=== PATIENT | female | born 1965 | race Caucasian/White ===

== ENCOUNTER → 2016-10-13 | Outpatient (CLI) | payer BC ==
[~2016-10-13] MED LIST: IBUP600T44 PO; PRCUNK PO
--- NOTE | 2016-10-21 12:09 | CODING QUERY MEDICAL NECESSITY ---
CQSUPPORTING DIAGNOSIS NEEDED A supporting diagnosis is required for the test/procedure performed on this patient in order for us to be reimbursed by the patient's insurance. Please provide a supporting diagnosis for the following test/procedure listed below next to the test name along with your signature. *If there is no additional diagnosis for this patient that would support the following test/procedure please document that below next to the test/procedure. Test(s)/Procedure(s) that require a supporting diagnosis: DOS 10/13/16 VITAMIN D VITAMIN B12 Provider Signature: Date: Thank you Lorenza Dick Health Information Management Once completed, please kindly fax back to [phone] For questions please call [phone]
== END | disposition home or self-care (01) ==
LOC: C.LABSPEC 10:48
PROVIDERS: ATTEND Family Medicine
DX: E03.9 Hypothyroidism, unspecified (principal); R53.83 Other fatigue; F90.0 Attention-deficit hyperactivity disorder, predominantly inattentive type

== ENCOUNTER → 2016-10-20 | Outpatient (CLI) | payer BC ==
--- NOTE | 2016-10-20 16:36 | MAMMOGRAPHY REPORT ---
BILATERAL DIGITAL SCREENING MAMMOGRAM TOMOSYNTHESIS WITH CAD: 10/20/2016 CLINICAL HISTORY: Routine screening. Patient has no complaints. TECHNIQUE: Breast tomosynthesis in addition to standard 2D mammography was performed. Current study was also evaluated with a Computer Aided Detection (CAD) system. COMPARISON: Comparison is made to exams dated: 09/09/2015 mammogram, 08/11/2014 mammogram, 08/08/2013 isela mogram, 08/06/2012 mammogram, 08/05/2011 mammogram, and 08/04/2010 mammogram - [facility] BREAST COMPOSITION: There are scattered areas of fibroglandular density in both breasts. FINDINGS: No suspicious masses, calcifications, or areas of architectural distortion are noted in e ither breast. There has been no significant interval change compared to prior exams. IMPRESSION: ACR BI-RADS CATEGORY 1: NEGATIVE There is no mammographic evidence of malignancy. A 1 year screening mammogram is recommended. The p atient will receive written notification of the results. Approximately 10% of breast cancers are not detected with mammography. A negative mammographic repor t should not delay biopsy if a clinically suggestive mass is present. Danielle Watson M.D. ah/:10/20/2016 16:23:32 Residential Coordinator: Lobo VILLAVICENCIO(R)(M), [facility] letter sent: Normal 1/2 BI-RADS Code: ACR BI-RADS Category 1: Negative
== END | disposition home or self-care (01) ==
LOC: C.MAMM 15:58
PROVIDERS: ATTEND Family Medicine
DX: Z12.31 Encounter for screening mammogram for malignant neoplasm of breast (principal)

== ENCOUNTER 2017-08-15 17:32 | Emergency (ER) | payer BC ==
[~2017-08-15] VITALS: Ht 172.7 cm; Wt 96.7 kg
[2017-08-15 17:36] VITALS: Ht 172.7 cm; Wt 96.7 kg
[2017-08-15] MEDS ORDERED: SODIUM CHLORIDE 0.9% 500ML 500 ML IV STA (18:06)
[2017-08-15] MEDS ORDERED: ASPIRIN 81 MG CHEW PO STA (18:06)
[2017-08-15] MEDS ORDERED: NITROGLYCERIN 0.4 MG SL PER TAB CHARGE SL PRN (18:15)
--- NOTE | 2017-08-15 18:21 | DIAGNOSTIC IMAGING REPORT ---
CHEST ONE VIEW PORTABLE CLINICAL HISTORY: 52 years-old Female presenting with Chest Pain. TECHNIQUE: Portable upright AP view of the chest was obtained. COMPARISON: None. FINDINGS: Cardiomediastinal silhouette normal. Lungs and pleural spaces clear. Degenerative changes of the thoracic spine. Upper abdomen normal. IMPRESSION: 1. No acute cardiopulmonary disease. Electronically signed by: Terence Tsang M.D. 08/15/2017 6:20 PM Dictated Date/Time: 08/15/2017 6:20 PM
[2017-08-15] MEDS ORDERED: LISD60CA PO (18:30)
[2017-08-15 18:32] LABS: BASO % 0.4 %; BASO ABS # 0.04 K/uL (0-0.2); EOS ABS # 0.19 K/uL (0-0.5); HEMATOCRIT 39.5 % (37-47); HEMOGLOBIN 13.7 g/dL (12.0-16.0); IG# 0.03 K/uL (0.00-0.02); LYMPH % 30.6 %; LYMPH ABS # 2.86 K/uL (1.2-3.4); MEAN CELL VOLUME 84.8 fL (80-100); MEAN CORPUSCULAR HEMOGLOBIN 29.4 pg (25-34); MEAN CORPUSCULAR HGB CONC 34.7 g/dl (32-36); MEAN PLATELET VOLUME 9.3 fL (7.4-10.4); MONO ABS # 0.84 K/uL (0.11-0.59); NEUT % 57.7 %; NEUT ABS # 5.38 K/uL (1.4-6.5); PLATELET COUNT 310 K/uL (130-400); RED CELL DISTRIBUTION WIDTH CV 13.3 % (11.5-14.5); RED CELL DISTRIBUTION WIDTH SD 40.9 fL (36.4-46.3); WHITE BLOOD COUNT 9.34 K/uL (4.8-10.8)
[2017-08-15] MEDS ORDERED: AMPH10TA2 PO (18:33)
[2017-08-15] MEDS ORDERED: LEVO100T7 PO (18:34)
[2017-08-15] MEDS ORDERED: CHOL2000 PO (18:35)
[2017-08-15 18:49] VITALS: TEMP 37.1
[2017-08-15 19:09] LABS: BLOOD UREA NITROGEN 13 mg/dl (7-18); CALCIUM 8.9 mg/dl (8.5-10.1); CARBON DIOXIDE 25 mmol/L (21-32); GLUCOSE 127 mg/dl (70-99); POTASSIUM 3.4 mmol/L (3.5-5.1); SODIUM 137 mmol/L (136-145)
[2017-08-15 19:14] LABS: CKMB 1.6 ng/ml (0.5-3.6)
[2017-08-15] MEDS ORDERED: ALBUTEROL 0.083% NEBU SOLN 3 ML VIAL INH STA (19:26)
--- NOTE | 2017-08-15 20:20 | Medical Consult ---
Consultation Date of Consultation: Aug 15, 2017. Attending Physician: History of Present Illness 52 y/o F Hx Hypothyroidism. Pt states she has felt like she cannot take a deep breath for approximately two months. She also describes a shooting pain in her chest which has also been present intermittently for 2 weeks. She denies N/V, diaphoresis, lightheadedness or radiation of the pain. The pt did not exhibit hypoxia or tachycardia. Initial labs are WNL, An EKG shows borderline inversions in 2 inferior leads, however, these are present on an EKG from 2010. Past Medical/Surgical History 1) Hypothyroidism 2) ADHD Family History Patient reports no known family medical history. Father had an IL at age 68 Social History Smoking Status: Never Smoker Allergies Coded Allergies: No Known Allergies (Unverified , 09/06/10) Current Inpatient Medications Current Inpatient Medications Medications (Trade) Dose Ordered Sig/Tian Route Start Time Stop Time Status Last Admin Dose Admin Nitroglycerin (Nitrostat Tab) 0.4 mg Q5M PRN SL 08/15/17 18:15 09/14/17 18:14 08/15/17 18:17 0.4 MG Review of Systems Constitutional: No fever, No chills, No sweats Eyes: No worsening of vision ENT: No hearing loss, No unusual epistaxis, No nasal symptoms Respiratory: + shortness of breath (feels she cannot take a deep breath ), No cough, No sputum, No wheezing Cardiovascular: + chest pain Abdomen: No pain, No nausea, No vomiting Musculoskeletal: No joint pain Genitourinary - Female: No dysuria, No urinary frequency, No urinary urgency Neurologic: No memory loss, No paralysis, No weakness Psychiatric: No depression symptoms Endocrine: No fatigue Hematologic / Lymphatic: No abnormal bleeding/bruising Integumentary: No rash Allergic / Immunologic: No environmental allergies Physical Exam Date Time Temp Pulse Resp B/P (MAP) Pulse Ox O2 Delivery O2 Flow Rate FiO2 08/15/17 18:49 37.1 89 18 157/85 100 Room Air 08/15/17 18:22 102 08/15/17 17:41 100 Room Air 08/15/17 17:36 37.0 115 20 168/90 100 Room Air General Appearance: WD/WN, no apparent distress Head: normocephalic Eyes: normal inspection ENT: normal ENT inspection, pharynx normal Neck: supple, no JVD Respiratory/Chest: chest non-tender, lungs clear Cardiovascular: regular rate, rhythm, no edema, no gallop, no JVD, no murmur Abdomen/GI: normal bowel sounds, non tender, soft Back: normal inspection, no CVA tenderness, no muscle spasm, normal range of motion Extremities/Musculoskelatal: normal inspection, no calf tenderness, normal capillary refill, no pedal edema, normal range of motion Neurologic/Psych: margin trimmer II-XII nml as tested, no motor/sensory deficits, alert, oriented x 3 Skin: normal color, warm/dry, no rash Laboratory Results Last 24 Hours Test 08/15/17 18:15 White Blood Count 9.34 K/uL Red Blood Count 4.66 M/uL Hemoglobin 13.7 g/dL Hematocrit 39.5 % Mean Corpuscular Volume 84.8 fL Mean Corpuscular Hemoglobin 29.4 pg Mean Corpuscular Hemoglobin Concent 34.7 g/dl Platelet Count 310 K/uL Mean Platelet Volume 9.3 fL Neutrophils (%) (Auto) 57.7 % Lymphocytes (%) (Auto) 30.6 % Monocytes (%) (Auto) 9.0 % Eosinophils (%) (Auto) 2.0 % Basophils (%) (Auto) 0.4 % Neutrophils # (Auto) 5.38 K/uL Lymphocytes # (Auto) 2.86 K/uL Monocytes # (Auto) 0.84 K/uL Eosinophils # (Auto) 0.19 K/uL Basophils # (Auto) 0.04 K/uL RDW Standard Deviation 40.9 fL RDW Coefficient of Variation 13.3 % Immature Granulocyte % (Auto) 0.3 % Immature Granulocyte # (Auto) 0.03 K/uL D-Dimer 260 ug/L FEU Sodium Level 137 mmol/L Potassium Level 3.4 mmol/L Chloride Level 104 mmol/L Carbon Dioxide Level 25 mmol/L Anion Gap 8.0 mmol/L Blood Urea Nitrogen 13 mg/dl Creatinine 0.90 mg/dl Est Creatinine Clear Calc Drug Dose 88.9 ml/min Estimated GFR () 85.2 Estimated GFR (Non- 73.5 BUN/Creatinine Ratio 14.1 Random Glucose 127 mg/dl Calcium Level 8.9 mg/dl Total Creatine Kinase 101 U/L Creatine Kinase MB 1.6 ng/ml Creatine Kinase MB Ratio 1.6 Troponin I < 0.015 ng/ml Assessment & Plan 52 y/o F Hx Hypothyroidism. Pt states she has felt like she cannot take a deep breath for approximately two months. She also describes a shooting pain in her chest which has also been present intermittently for 2 weeks. She denies N/V, diaphoresis, lightheadedness or radiation of the pain. The pt did not exhibit hypoxia or tachycardia. Initial labs are WNL, An EKG shows borderline inversions in 2 inferior leads, however, these are present on an EKG from 2010. 1) CP/SOB - symptoms present for 2 months. No evidence of acute ischemia. We have contacted the cardiology service and have arranged follow-up in the near- term. We have advised that if she is cleared from a cardiology standpoint, she proceed to consult a powder nipper. A stress test however, may be a good starting point in addressing her symptoms. 2) Hypothyroidism - cont Synthroid - would check a TSH at her next primary visit as low thyroid can lead to muscle spasms 3) ADHD - we would advise on cutting down any stimulant use as possible until her workup is complete. Total time for this consult including review of labs, meds, records, EKG, XR - discussion with pt, , ER attending - 30 min
[2017-08-15] MEDS ORDERED: POTASSIUM CHLORIDE 20 MEQ TABCR PO STA (20:24)
[2017-08-15] MEDS ORDERED: POTASSIUM CHLORIDE 10 MEQ TABCR ONE (20:37)
[2017-08-15 21:22] VITALS: BP 150/86; PULSE 88; O2SAT 98
--- NOTE | 2017-08-15 23:33 | EMERGENCY ROOM VISIT NOTE ---
History Report prepared by Angus: Messi Dugan Under the Supervision of: Dr. Eduard Groves D.O. First contact with patient: 17:55 Chief Complaint: SHORTNESS OF BREATH Stated Complaint: SHORTNESS OF BREATH Nursing Triage Summary: Patient ambulatory to triage with an upright and steady gait, present, states "I am having trouble catching my breath. I am short of breath. This has been going on for a while, off and on for 6 months to a year. For the last two months, it has been more frequent. For the last two weeks it seems almost constant. I do get pangs in my chest but they're not constant. Right now, I would say I have a mild pressure on my chest." History of Present Illness The patient is a 52 year old female who presents to the Emergency Room with complaints of worsening shortness of breath that began a year ago. The patient states that she has been intermittently short of breath for a year. She states that the last two months, her episodes have been more frequent. She states that she has been experiencing chest pain randomly for the last two months as well, which she describes as a squeezing sensation in the middle of her chest. The patient states that for the last two weeks her shortness of breath has been constant. She states that her chest pain has been intermittent and states that she is currently experiencing chest pain. The patient states that she also developed a headache this morning, which she took Ibuprofen for. She states that she also took Excedrin for her symptoms at 1030. The patient denies pain down her arm, leg swelling, cough, rhinorrhea, sore throat, change in vision, fevers, nausea, vomiting, diarrhea, pain with urination, and melena. The patient denies a history of diabetes, hypertension, hyperlipidemia, heart disease, smoking, recent travel, recent surgeries, blood clots, coughing up blood, and cancer. She reports that she has been experiencing hypertension recently but denies taking any medication. The patient reports a family history of heart disease. Source of History: patient Onset: a year ago Position: other (global) Quality: other (global) Timing: worsening Modifying Factors (Relieving): ibuprofen Associated Symptoms: + headache, + chest pain, No fevers, No sorethroat, No cough, No nausea, No vomiting, No melena, No diarrhea, No urinary symptoms Review of Systems See HPI for pertinent positives & negatives. A total of 10 systems reviewed and were otherwise negative. Past Medical & Surgical Medical Problems: (1) ADHD Surgical Problems: (1) H/O: hysterectomy Family History Patient reports no known family medical history. Social History Smoking Status: Never Smoker Smokeless Tobacco Use: No Marital Status: Housing Status: lives with family Occupation Status: employed Current/Historical Medications Scheduled Cholecalciferol (Vitamin D3), 2,000 UNITS PO DAILY Levothyroxine Sodium (Levothyroxine Sodium), 100 MCG PO DAILY Lisdexamfetamine Dimesylate (Vyvanse), 60 MG PO DAILY Scheduled PRN Amphetamine-Dextroamphetamine 10MG (Adderall 10MG), 10 MG PO DAILY PRN for CONCENTRATION Allergies Coded Allergies: No Known Allergies (Unverified , 09/06/10) Physical Exam Vital Signs Date Time Temp Pulse Resp B/P (MAP) Pulse Ox O2 Delivery O2 Flow Rate FiO2 08/15/17 21:22 88 20 150/86 98 Room Air 08/15/17 19:52 84 20 141/94 100 Nebulizer 08/15/17 18:49 37.1 89 18 157/85 100 Room Air 08/15/17 18:22 102 08/15/17 17:41 100 Room Air 08/15/17 17:36 37.0 115 20 168/90 100 Room Air Physical Exam GENERAL: Sitting up in bed, alert, well appearing, well nourished, no distress, non-toxic EYE EXAM: normal conjunctiva. PERRL and EOM's grossly intact. OROPHARYNX: no exudate, no erythema, lips, buccal mucosa, and tongue normal and mucous membranes are moist NECK: supple, no nuchal rigidity, no adenopathy, non-tender, no JVD. LUNGS: Clear to auscultation. Normal chest wall mechanics HEART: no murmurs, S1 normal and S2 normal ABDOMEN: abdomen soft, non-tender, normo-active bowel sounds, no masses, no rebound or guarding. BACK: Back is symmetrical on inspection and there is no deformity, no midline tenderness, no CVA tenderness. SKIN: no rashes and no bruising UPPER EXTREMITIES: upper extremities are grossly normal. LOWER EXTREMITIES: No pitting edema. Calves are equal bilaterally. NEURO EXAM: Normal sensorium, cranial nerves II-XII grossly intact, normal speech, no gross weakness of arms, no gross weakness of legs. Gross sensation intact. Medical Decision & Procedures ER Provider Diagnostic Interpretation: Radiology results as stated below per my review and the radiologist's interpretation: CHEST ONE VIEW PORTABLE CLINICAL HISTORY: 52 years-old Female presenting with Chest Pain. TECHNIQUE: Portable upright AP view of the chest was obtained. COMPARISON: None. FINDINGS: Cardiomediastinal silhouette normal. Lungs and pleural spaces clear. Degenerative changes of the thoracic spine. Upper abdomen normal. IMPRESSION: 1. No acute cardiopulmonary disease. Electronically signed by: Terence Tsang M.D. 08/15/2017 6:20 PM Dictated Date/Time: 08/15/2017 6:20 PM Laboratory Results 08/15/17 18:15 Red Blood Count 4.66, Mean Corpuscular Volume 84.8, Mean Corpuscular Hemoglobin 29.4, Mean Corpuscular Hemoglobin Concent 34.7, Mean Platelet Volume 9.3, Neutrophils (%) (Auto) 57.7, Lymphocytes (%) (Auto) 30.6, Monocytes (%) (Auto) 9.0, Eosinophils (%) (Auto) 2.0, Basophils (%) (Auto) 0.4, Neutrophils # (Auto) 5.38, Lymphocytes # (Auto) 2.86, Monocytes # (Auto) 0.84, Eosinophils # (Auto) 0.19, Basophils # (Auto) 0.04 08/15/17 18:15 Test 08/15/17 18:15 08/15/17 20:28 White Blood Count 9.34 K/uL (4.8-10.8) Red Blood Count 4.66 M/uL (4.2-5.4) Hemoglobin 13.7 g/dL (12.0-16.0) Hematocrit 39.5 % (37-47) Mean Corpuscular Volume 84.8 fL (80-100) Mean Corpuscular Hemoglobin 29.4 pg (25-34) Mean Corpuscular Hemoglobin Concent 34.7 g/dl (32-36) Platelet Count 310 K/uL (130-400) Mean Platelet Volume 9.3 fL (7.4-10.4) Neutrophils (%) (Auto) 57.7 % Lymphocytes (%) (Auto) 30.6 % Monocytes (%) (Auto) 9.0 % Eosinophils (%) (Auto) 2.0 % Basophils (%) (Auto) 0.4 % Neutrophils # (Auto) 5.38 K/uL (1.4-6.5) Lymphocytes # (Auto) 2.86 K/uL (1.2-3.4) Monocytes # (Auto) 0.84 K/uL (0.11-0.59) Eosinophils # (Auto) 0.19 K/uL (0-0.5) Basophils # (Auto) 0.04 K/uL (0-0.2) RDW Standard Deviation 40.9 fL (36.4-46.3) RDW Coefficient of Variation 13.3 % (11.5-14.5) Immature Granulocyte % (Auto) 0.3 % Immature Granulocyte # (Auto) 0.03 K/uL (0.00-0.02) D-Dimer 260 ug/L FEU (0-500) Anion Gap 8.0 mmol/L (3-11) Est Creatinine Clear Calc Drug Dose 88.9 ml/min Estimated GFR () 85.2 Estimated GFR (Non- 73.5 BUN/Creatinine Ratio 14.1 (10-20) Calcium Level 8.9 mg/dl (8.5-10.1) Total Creatine Kinase 101 U/L (26-192) Creatine Kinase MB 1.6 ng/ml (0.5-3.6) Creatine Kinase MB Ratio 1.6 (0-3.0) Troponin I < 0.015 ng/ml (0-0.045) Laboratory results per my review. Medications Administered Medications (Trade) Dose Ordered Sig/Tian Route Start Time Stop Time Status Last Admin Dose Admin Aspirin (Aspirin Chew) 324 mg NOW STAT PO 08/15/17 18:06 08/15/17 18:12 DC 08/15/17 18:17 324 MG Nitroglycerin (Nitrostat Tab) 0.4 mg Q5M PRN SL 08/15/17 18:15 08/15/17 22:03 DC 08/15/17 18:17 0.4 MG Sodium Chloride 500 ml @ 999 mls/hr Q31M STAT IV 08/15/17 18:06 08/15/17 18:36 DC 08/15/17 18:20 999 MLS/HR Albuterol Sulfate (Ventolin 0.083% 2.5MG/3ML Neb) 2.5 mg NOW STAT INH 08/15/17 19:26 08/15/17 19:27 DC 08/15/17 19:50 2.5 MG Potassium Chloride (Klor-Con M10) 20 meq STK-MED ONCE .ROUTE 08/15/17 20:37 08/15/17 20:38 DC 08/15/17 20:42 20 MEQ ECG Indication: SOB/dyspnea Rate (beats per minute): 107 Rhythm: sinus tachycardia Findings: nonspecific-ST abn (Inferior, lateral), other (Normal axis,) Comparison ECG Date: 09/01/10 Change: T wave flattening is new in lateral and inferior Patient's electrocardiogram interpreted by me. ED Course ED COURSE: Vital signs were reviewed and showed hypertension and tachycardia The patients medical record was reviewed The above diagnostic studies were performed and reviewed. ED treatments and interventions as stated above. 1757: The patient was evaluated in room A03. A complete history and physical examination was performed. 1805: Ordered Aspirin 324 mg PO. 1814: Ordered Nitroglycerin 0.4 mg SL. 1925: Ordered Albuterol Sulfate 2.5 mg INH. 1933: I discussed the patient's case with Dr. Ness, [facility] Hospitalist. He understands the patient's condition and agrees to accept the patient. The patient will be further evaluated. 2019: I reevaluated the patient and she states the nebulizer did not help. I will repeat a troponin. Medical Decision Differential diagnoses includes but is not limited to pneumonia, bronchitis, COPD/Asthma exacerbation, pneumothorax, pulmonary embolism, congestive heart failure, acute coronary syndrome. Patient is a 52-year-old female with a family history of heart disease and questionable hypertension presents to the ER for worsening shortness of breath over the past 2 months. She notes that specifically over the past 2 weeks has increased even more. She now is having intermittent chest squeezing which comes and goes. She cannot think of any true exacerbating or remitting factors but does think it might be worse with exertion but is not certain. CBC was unremarkable. BMP with mild hypokalemia. Initial troponin was negative. EKG shows flattening of T waves which is new in comparison to old. Chest x-ray was unremarkable. She believes that her chest pain may have resolved with the nitro was given in the ER. D-dimer was negative and a low risk patient and consequently was not pursued any further. Patient was given neb treatment to see if this helped with her breathing but there is no improvement. Based on her age and EKG along with her symptoms I felt was reasonable to observe her overnight. I had her evaluated by internal medicine for admission. Following his evaluation he did not believe that she needed to be admitted and requested that we discharge her to follow-up as an outpatient. He will set up cardiology follow-up. Following this he did repeat another EKG and troponin. Both were unchanged from previous. At this time patient was discharged follow-up with her PCP and cardiology as an outpatient. I stressed the importance for returning for any worsening of her symptoms. Discussed with Pt concerning signs and symptoms to watch out for. Pt was instructed to follow up with their PCP and discussed with the patient their option to return to the ED at anytime for persistent or worsening symptoms. The appropriate anticipatory guidance and out- patient management, including indications for return to the emergency department , were explained at length to the patient and understood. Medication Reconcilliation Current Medication List: was personally reviewed by me Blood Pressure Screening Patient's blood pressure: Elevated blood pressure Referred to Hospitalist Consults Time Called: 1912 Consulting Physician: Dr. Ness, [facility] Hospitalist Returned Call: 1933 I discussed the patient's case with Dr. Ness, [facility] Hospitalist. He understands the patient's condition and agrees to accept the patient. The patient will be further evaluated. Impression Primary Impression: Precordial chest pain Additional Impressions: Chest pain Hypokalemia Scribe Attestation The scribe's documentation has been prepared under my direction and personally reviewed by me in its entirety. I confirm that the note above accurately reflects all work, treatment, procedures, and medical decision making performed by me. Departure Information Dispostion Home / Self-Care (ERASED) Referrals César Jenkins M.D. (PCP) Forms HOME CARE DOCUMENTATION FORM, IMPORTANT VISIT INFORMATION Patient Instructions Chest Pain - [facility], ED Dyspnea Shortness of Breath, [facility] Additional Instructions Please follow up with your primary care doctor with in the next 24 hours. Any worsening of your symptoms, please return to the ED immediately. This includes any fevers greater than 100.4, worsening pain, chest pain, shortness breath, persistent nausea, vomiting, unable to eat or drink, or any other concerning signs or symptoms from your standpoint. Please follow up with cardiology. As set up by internal medicine as soon as possible. Any worsening or recurrence of her chest pain please return to the ER immediately. Please refrain from exerting herself. Please take an aspirin daily Problem Qualifiers Additional Impressions: Chest pain Chest pain type: unspecified Qualified Codes: R07.9 - Chest pain, unspecified
== END 2017-08-15 21:30 | disposition home or self-care (01) ==
LOC: C.EDB 17:34 → C.EDA 21:30
DX: R07.2 Precordial pain (principal); E87.6 Hypokalemia; F90.9 Attention-deficit hyperactivity disorder, unspecified type; Z90.710 Acquired absence of both cervix and uterus; Z79.899 Other long term (current) drug therapy

== ENCOUNTER → 2018-01-24 | Outpatient (CLI) | payer BC ==
[~2018-01-24] MED LIST changes: +AMPH10TA2 PO; +CHOL2000 PO; -IBUP600T44 PO; +LEVO100T7 PO; +LISD60CA PO; -PRCUNK PO
--- NOTE | 2018-01-25 07:56 | MAMMOGRAPHY REPORT ---
BILATERAL DIGITAL SCREENING MAMMOGRAM TOMOSYNTHESIS WITH CAD: 01/24/2018 TECHNIQUE: The study was acquired using full field digital technology and interpreted from soft copy. Breast tomosynthesis in addition to standard 2D mammography was performed. Current study was also ev aluated with a Computer Aided Detection (CAD) system. COMPARISON: Comparison is made to exams dated: 10/20/2016 mammogram, 09/09/2015 mammogram, 08/11/2014 isela mogram, 08/08/2013 mammogram, 08/06/2012 mammogram, and 08/05/2011 mammogram - [facility] . BREAST COMPOSITION: There are scattered areas of fibroglandular density in both breasts. FINDINGS: No suspicious masses, calcifications, or areas of architectural distortion are noted in either breast . There has been no significant interval change compared to prior exams. IMPRESSION: ACR BI-RADS CATEGORY 1: NEGATIVE There is no mammographic evidence of malignancy. A 1 year screening mammogram is recommended.( 019) The patient will receive written notification of the results. Some breast cancers are not detected with mammography. A negative mammographic report should not kennedi y biopsy if a clinically suggestive mass is present. Danielle Watson M.D. ah/:01/25/2018 07:34:51 Diamond Assorter: RT Elin(Abril)(M), [facility] letter sent: Normal 1/2 BI-RADS Code: ACR BI-RADS Category 1: Negative
== END | disposition home or self-care (01) ==
LOC: C.MAMM 17:05
PROVIDERS: ATTEND Family Medicine
DX: Z12.31 Encounter for screening mammogram for malignant neoplasm of breast (principal)